=== PATIENT | female | born 1975 | race Caucasian/White ===

== ENCOUNTER 2021-08-24 05:25 | Day surgery (SDC) | payer OTHER ==
[~2021-08-24] VITALS: Ht 157.5 cm; Wt 99.8 kg
[2021-08-24 06:39] LABS: HCG,QUAL RESULT NEGATIVE (NEGATIVE)
[2021-08-24] MEDS ORDERED: CEFAZOLIN SOD 1 GM in D5W 50 ML IV ONE (07:00)
[2021-08-24] MEDS ORDERED: NS IRRIG SOLN 1000 ML IR ONE (08:00)
[2021-08-24] MEDS ORDERED: LR 1,000 ML IV.SOLN IV ONE (08:00)
[2021-08-24] MEDS ORDERED: PROPOFOL 200MG/ 20ML VIAL (DIPRIVAN) IV ONE (08:00)
[2021-08-24] MEDS ORDERED: LIDOCAINE 1% 10 MG/ML, 20 ML MDV INJ ONE (08:00)
[2021-08-24] MEDS ORDERED: BUPIVACAINE /PF 0.25% 30 ML VIAL INJ ONE (08:00)
[2021-08-24] MEDS ORDERED: DEXAMETHASONE SOD PHOSPHATE 4 MG/ML VIAL IVP ONE (08:00)
[2021-08-24] MEDS ORDERED: DESFLURANE 15 MIN GAS INH ONE (08:00)
[2021-08-24] MEDS ORDERED: fentaNYL CITRATE 250 MCG/5 ML AMP IV ONE (08:00)
[2021-08-24] MEDS ORDERED: ROCURONIUM BROMIDE 10 MG/ML (ZEMURON) IV ONE ×2 (08:00)
[2021-08-24] MEDS ORDERED: SUGAMMADEX SODIUM 200 MG/2 ML VIAL IV ONE (08:00)
[2021-08-24] MEDS ORDERED: ONDANSETRON HCL 4 MG/2 ML VIAL IVP ONE (08:00)
[2021-08-24] MEDS ORDERED: ACETAMINOPHEN I.V. 1000 MG 100 ML IV ONE (08:57)
[2021-08-24] MEDS ORDERED: HYDROmorphone 1 MG/ML INJ. CARTRIDGE IVP PRN ×2 (09:00)
[2021-08-24] MEDS ORDERED: MIDAZOLAM HCL 2 MG/2 ML VIAL (VERSED) IVP PRN (09:00)
[2021-08-24] MEDS ORDERED: METOCLOPRAMIDE HCL 10 MG/2 ML VIAL IVP PRN (09:00)
[2021-08-24] MEDS ORDERED: LABETALOL 100 MG/ 20ML VIAL IVP PRN (09:00)
[2021-08-24] MEDS ORDERED: MEPERIDINE HCL/PF 25 MG/ML DISP.SYRIN IVP PRN (09:00)
[2021-08-24] MEDS ORDERED: LR 1,000 ML IV SCH (09:00)
[2021-08-24] MEDS ORDERED: hydrALAZINE HCL 20 MG/ML VIAL IVP PRN (09:00)
[2021-08-24] MEDS ORDERED: IBUPROFEN 800 MG TABLET PO PRN (10:30)
[2021-08-24] MEDS ORDERED: ONDANSETRON HCL 4 MG/2 ML VIAL IM PRN (10:30)
[2021-08-24] MEDS ORDERED: OXYCODONE/ACETAMINOPHEN 5-325 TABLET PO PRN ×2 (10:30)
[2021-08-24] MEDS ORDERED: HYDROmorphone 1 MG/ML INJ. CARTRIDGE ONE (10:58)
[2021-08-24 11:30] VITALS: BP_SYST 146
== END 2021-08-24 14:00 | disposition home or self-care (01) ==
LOC: SDS 05:25 → SMU 05:25 → SDS 14:00
PROVIDERS: ATTEND Obstetrics & Gynecology
DX: D25.9 Leiomyoma of uterus, unspecified (principal); N93.9 Abnormal uterine and vaginal bleeding, unspecified; I10 Essential (primary) hypertension; E66.9 Obesity, unspecified; F41.9 Anxiety disorder, unspecified; Z79.899 Other long term (current) drug therapy; Z20.822 Contact with and (suspected) exposure to COVID-19
CPT/HCPCS: 36415 ×2; 58674; 84703; 86886; 86900; 86901; 87426; U0003; J3490 ×2; J0690; J1100; J2001; J2405; J2704; J3010; J1170; J7060; J7120; C1727; J0131

== ENCOUNTER 2021-11-20 10:06 | Day surgery (SDC) | payer OTHER ==
[2021-11-19 16:47] LABS: HCG,QUAL RESULT NEGATIVE (NEGATIVE)
[~2021-11-20] VITALS: Ht 157.5 cm; Wt 97.5 kg
[~2021-11-20 10:06] MED LIST: CEFAZOLIN SOD 2 GM in D5W 50 ML IV ONE
[2021-11-20] MEDS ORDERED: SUGAMMADEX SODIUM 200 MG/2 ML VIAL IV ONE (11:45)
[2021-11-20] MEDS ORDERED: KETOROLAC TROMETHAMINE 30 MG VIAL IVP ONE (11:45)
[2021-11-20] MEDS ORDERED: METOPROLOL TARTRATE 5 MG/5 ML VIAL IVP ONE (11:45)
[2021-11-20] MEDS ORDERED: DEXAMETHASONE SOD PHOSPHATE 4 MG/ML VIAL IVP ONE (11:45)
[2021-11-20] MEDS ORDERED: DESFLURANE 15 MIN GAS INH ONE (11:45)
[2021-11-20] MEDS ORDERED: ONDANSETRON HCL 4 MG/2 ML VIAL IVP ONE (11:45)
[2021-11-20] MEDS ORDERED: PROPOFOL 200MG/ 20ML VIAL (DIPRIVAN) IV ONE (11:45)
[2021-11-20] MEDS ORDERED: LIDOCAINE 1% 10 MG/ML, 20 ML MDV INJ ONE (11:45)
[2021-11-20] MEDS ORDERED: MIDAZOLAM HCL 5 MG/5 ML VIAL IVP ONE (11:45)
[2021-11-20] MEDS ORDERED: LR 1,000 ML IV.SOLN IV ONE (11:45)
[2021-11-20] MEDS ORDERED: fentaNYL CITRATE/PF 100 MCG/2 ML AMP IVP ONE (11:45)
[2021-11-20] MEDS ORDERED: ROCURONIUM BROMIDE 10 MG/ML (ZEMURON) IV ONE (11:45)
[2021-11-20] MEDS ORDERED: ACETAMINOPHEN I.V. 1000 MG 100 ML IV ONE (12:19)
[2021-11-20] MEDS ORDERED: HYDROmorphone 1 MG/ML INJ. CARTRIDGE IVP PRN ×2 (12:30)
[2021-11-20] MEDS ORDERED: hydrALAZINE HCL 20 MG/ML VIAL IVP PRN (12:30)
[2021-11-20] MEDS ORDERED: LR 1,000 ML IV SCH (12:30)
[2021-11-20] MEDS ORDERED: LABETALOL 100 MG/ 20ML VIAL IVP PRN (12:30)
[2021-11-20] MEDS ORDERED: MEPERIDINE HCL/PF 25 MG/ML DISP.SYRIN IVP PRN (12:30)
[2021-11-20] MEDS ORDERED: METOCLOPRAMIDE HCL 10 MG/2 ML VIAL IVP PRN (12:30)
[2021-11-20] MEDS ORDERED: MIDAZOLAM HCL 2 MG/2 ML VIAL (VERSED) IVP PRN (12:30)
[2021-11-20 16:06] VITALS: BP_SYST 128
== END 2021-11-20 15:30 | disposition home or self-care (01) ==
LOC: SDS 10:06 → SMU 10:10 → SDS 15:30
PROVIDERS: ATTEND Surgery
DX: K42.9 Umbilical hernia without obstruction or gangrene (principal); I10 Essential (primary) hypertension; F41.9 Anxiety disorder, unspecified; E66.9 Obesity, unspecified; Z79.899 Other long term (current) drug therapy; Z68.41 Body mass index [BMI] 40.0-44.9, adult; Z20.822 Contact with and (suspected) exposure to COVID-19
CPT/HCPCS: 84703; 36415; 87426; 49585; J3490 ×2; J0690; J1100; J1885; J2001; J2250; J2405; J2704; J3010; J7060; J7120; C1781; J0131